=== PATIENT | male | born 1985 | race American Indian/Alaskan Native ===

== ENCOUNTER 2017-01-12 11:23 | Emergency (ER) | payer OTHER ==
[2017-01-12 11:39] VITALS: TEMP 97.8; O2SAT 99
--- NOTE | 2017-01-12 12:44 | C.PDOC ---
History Of Present Illness 31 y/o male presents to ED with c/o something crawling in his right ear since 03 :00 this morning. Patient reports feeling discomfort in ear. Denies fever, chills, headache, visual changes, or other complaints. Time Seen by Provider: 01/12/17 11:51 Chief Complaint (Nursing): ENT Problem History Per: Patient History/Exam Limitations: None Onset/Duration Of Symptoms: Hrs Current Symptoms Are (Timing): Still Present Anticoagulant/Antiplatlet Use?: No Past Medical History Reviewed: Historical Data, Nursing Documentation, Vital Signs Vital Signs: Last Vital Signs Temp 97.8 F 01/12/17 11:38 Pulse 70 01/12/17 13:21 Resp 17 01/12/17 13:21 BP 124/71 01/12/17 13:21 Pulse Ox 99 01/12/17 13:21 - Medical History PMH: No Chronic Diseases Family History: States: Unknown Family Hx - Social History Hx Alcohol Use: Yes Hx Substance Use: No - Immunization History Hx Tetanus Toxoid Vaccination: Yes Review Of Systems Constitutional: Negative for: Fever, Chills ENT: Positive for: Ear Pain (+foreign body sensation, R ear). Negative for: Ear Discharge, Nose Discharge, Nose Congestion, Throat Pain Respiratory: Negative for: Cough Gastrointestinal: Negative for: Vomiting Skin: Negative for: Rash Neurological: Negative for: Headache, Dizziness Physical Exam - Physical Exam Appears: Non-toxic, No Acute Distress Skin: Warm, Dry Head: Atraumatic, Normacephalic Ear(s): Left: Normal, Right: Other (insect visualized in R ear canal) Nose: Normal Oral Mucosa: Moist Throat: Normal, No Erythema, No Exudate Chest: Symmetrical Cardiovascular: Rhythm Regular Respiratory: Normal Breath Sounds, No Rales, No Rhonchi, No Wheezing Neurological/Psych: Oriented x3 ED Course And Treatment O2 Sat by Pulse Oximetry: 99 (RA) Pulse Ox Interpretation: Normal Medical Decision Making Medical Decision Making: pt with insect in ear; 1 ml viscous lidocaine put in ear, insect (likely cockroach) removed with alligator forceps. Ears examined after insect removal; TM erythematous, will put pt on antibiotics with ENT follow up. Disposition Counseled Patient/Family Regarding: Diagnosis, Need For Followup, Rx Given - Disposition Referrals: Kolby Crawford MD [Staff Provider] - [facility] [Outside] Disposition: HOME/ ROUTINE Disposition Time: 13:12 Condition: IMPROVED Additional Instructions: Take antibiotics as prescribed and Tylenol or Motrin for pain if needed. Please follow up with your doctor in medical clinic or with ENT doctor in the next few days. Return to ER for any worsening symptoms. Prescriptions: Amoxicillin [Amoxil 500 mg Cap] 500 mg PO TID #21 cap Instructions: Ear Foreign Body (ED) Forms: [employer] ([employer]) - Clinical Impression Clinical Impression: Foreign body in right ear, initial encounter, Otitis media of right ear, Visit for wound check - PA / [employer] SALES REPRESENTATIVE / Resident Statement MD/DO has reviewed & agrees with the documentation as recorded. - Scribe Statement The provider has reviewed the documentation as recorded by the Scribe SM All medical record entries made by the Scribe were at my direction and personally dictated by me. I have reviewed the chart and agree that the record accurately reflects my personal performance of the history, physical exam, medical decision making, and the department course for this patient. I have also personally directed, reviewed, and agree with the discharge instructions and disposition.
[2017-01-12 13:23] VITALS: BP 124/71; PULSE 70; RESP 17
== END 2017-01-12 13:24 | disposition home or self-care (01) ==
LOC: C.ER 11:23
DX: T16.1XXA Foreign body in right ear, initial encounter (principal); X58.XXXA Exposure to other specified factors, initial encounter; H66.91 Otitis media, unspecified, right ear